=== PATIENT | female | born 1995 | race Caucasian/White ===

== ENCOUNTER 2017-06-29 02:44 | Emergency (ER) | payer OTHER ==
[2017-06-29 03:15] LABS: ADD MAN DIFF? NO
[2017-06-29 03:16] LABS: BASO # 0.1 x10^3/uL (0.0-0.2); BASO % 1 % (0-3); EOS # 0.2 x10^3/uL (0.0-0.7); EOS % 3 % (0-3); HEMATOCRIT 40.8 % (36.0-47.0); HEMOGLOBIN 14.1 g/dL (12.0-15.5); LYMPH # 1.9 x10^3/uL (1.0-4.8); LYMPH % 25 % (24-48); MEAN CORPUSCULAR HEMOGLOBIN 33 pg (25-35); MEAN CORPUSCULAR HGB CONC 35 g/dL (31-37); MEAN CORPUSCULAR VOLUME 95 fL (79-100); MONO # 1.1 x10^3/uL (0.0-1.1); MONO % 15 % (0-9); NEUT # 4.2 x10^3uL (1.8-7.7); NEUT % 56 % (31-73); PLATELET COUNT 225 x10^3/uL (140-400); WHITE BLOOD COUNT 7.5 x10^3/uL (4.0-11.0)
[2017-06-29 03:17] LABS: BILIRUBIN,URINE NEGATIVE (NEG); CLARITY,URINE CLOUDY; COLOR,URINE YELLOW; GLUCOSE,URINE NEGATIVE (NEG); NITRITE,URINE NEGATIVE (NEG); PROTEIN,URINE NEGATIVE (NEG-TRACE); UROBILINOGEN,URINE 0.2 mg/dL (0.2 mg/dL)
[2017-06-29 03:20] LABS: URINE HCG POC HCG NEGATIVE (Negative)
[2017-06-29 03:22] LABS: AMORPHOUS SEDIMENT,UR PRESENT /HPF; BACTERIA,URINE FEW /HPF (0-FEW); SQUAMOUS EPITHELIAL CELL,UR FEW /LPF; WBC,URINE OCC /HPF (0-4)
[2017-06-29 03:30] LABS: AMPHETAMINE/METHAMPHETAMINE NEG (NEG); ANION GAP 14 (6-14); BARBITURATES NEG (NEG); BENZODIAZEPINES NEG (NEG); BLOOD UREA NITROGEN 13 mg/dL (7-20); BUN/CREATININE RATIO 16 (6-20); CANNABINOIDS POS (NEG); CARBON DIOXIDE 25 mmol/L (21-32); CHLORIDE 102 mmol/L (98-107); COCAINE NEG (NEG); CREATININE 0.8 mg/dL (0.6-1.0); ETHANOL, URINE NEG (NEG); GFR 90.5; GLUCOSE 108 mg/dL (70-99); METHADONE NEG (NEG); OPIATES NEG (NEG); PHENCYCLIDINE NEG (NEG); POTASSIUM 3.1 mmol/L (3.5-5.1); SODIUM 141 mmol/L (136-145)
[2017-06-29] MEDS: IV NORMAL SALINE 1000ML BAG 1,000 ML IV (03:30)
[2017-06-29] MEDS: fentaNYL PF VIAL 100 MCG/2 ML VIAL IV (03:31)
[2017-06-29] MEDS: ONDANSETRON PF 4 MG/2 ML VIAL. IV (03:31)
[2017-06-29] MEDS: LIDO:MAALOX:DONNATAL 1:1:1 15 ML SINGLE DOSE SWSW (03:31)
[2017-06-29 03:35] LABS: ALBUMIN 4.5 g/dL (3.4-5.0); ALBUMIN/GLOBULIN RATIO 1.3 (1.0-1.7); ALK PHOS 68 U/L (46-116); ALT (SGPT) 24 U/L (14-59); AST (SGOT) 22 U/L (15-37); LIPASE 146 U/L (73-393); MAGNESIUM 1.8 mg/dL (1.8-2.4); TOTAL BILIRUBIN 0.4 mg/dL (0.2-1.0)
[2017-06-29] MEDS ORDERED: IOHEXOL 300 MG/ML 100ML VIAL. IV (04:30)
[2017-06-29] MEDS ORDERED: CONTRAST GIVEN MC (04:30)
[2017-06-29] MEDS: MORPHINE SULFATE 10 MG/ML VIAL. IV (04:30)
[2017-06-29] MEDS: POTASSIUM CHLORIDE 20 MEQ TABLET.ER. PO (07:07)
[2017-06-29] MEDS: KETOROLAC 30 MG/ML INJ. IV (07:10)
== END 2017-06-29 07:18 | disposition home or self-care (01) ==
LOC: ER 02:44
DX: R10.84 Generalized abdominal pain (principal); M54.9 Dorsalgia, unspecified; R31.9 Hematuria, unspecified; R11.0 Nausea; R68.83 Chills (without fever)
CPT/HCPCS: 36415; 74177; 76856; 80053; 80307; 81001; 81025; 83690; 83735; 85025; 96361; 96374; 96375; 99285-25; J1885; J2270; J2405; J3010; J7030